=== PATIENT | female | born 1990 | race African-American/Black ===

== ENCOUNTER 2017-09-24 02:02 | Inpatient (IN) ==
[2017-09-24] MEDS: LACTATED RINGERS 1,000 ML IV SCH ×3 (02:47→08:59)
[2017-09-24] MEDS ORDERED: ONDANSETRON 4 MG/2 ML VIAL IV PRN (02:57)
[2017-09-24] MEDS ORDERED: BUTORPHANOL 2 MG/ML VIAL IV PRN (02:57)
[2017-09-24] MEDS: MEPERIDINE 50 MG/1 ML VIAL IV PRN ×2 (05:25→07:55)
[2017-09-24] MEDS ORDERED: OXYTOCIN/LR 20 UNIT/1,000 ML BAG IV SCH (05:30)
[2017-09-24 05:31] LABS: Basophils % 0.2 % (0.0-0.8); Eosinophils % 0.7 % (0.00-10.9); Hematocrit 28.3 VOL% (35.7-47.0); Hemoglobin 8.8 GM/DL (12.0-16.0); Immature Granulocytes % 0.3 %; Immature Granulocytes Absolute 0.02 #; Lymphocytes # 1.7 10*3/uL (1.4-4.0); Lymphocytes % 29.6 % (21.3-54.2); Mean Corpuscular HGB Conc 31.1 GM/DL (32-36); Mean Corpuscular Hemoglobin 22 PG (27-34); Mean Corpuscular Volume 72.2 FL (87-102); Mean Platelet Volume 9.3 FL (9.6-12.0); Monocytes # 0.5 10*3/uL (0.11-0.8); Monocytes % 7.7 % (1.7-12.7); NRBC # 0.03 10*3/uL; Neutrophils # 3.6 10*3/uL (1.4-7.4); Neutrophils % 61.5 % (38.7-73.9); Platelet Count 196 T/CUMM (130-400); Red Blood Count 3.92 MC/CUMM (3.8-5.5); Red Cell Distribution Width 17.2 % (9.3-17.3); White Blood Count 5.8 T/CUMM (4-12)
[2017-09-24] MEDS ORDERED: PROMETHAZINE 25 MG/1 ML VIAL IM ONE (07:36)
[2017-09-24] MEDS ORDERED: CITRIC ACID/SODIUM CITRATE 30 ML UDCUP PO ONE (07:36)
[2017-09-24] MEDS ORDERED: FAMOTIDINE 20 MG/2 ML VIAL IV ONE (07:36)
[2017-09-24] MEDS ORDERED: ePHEDrine 50 MG/ML AMP IV PRN (07:36)
[2017-09-24] MEDS ORDERED: hydrOXYzine HCL 25 MG/1 ML VIAL IM PRN (07:36)
[2017-09-24] MEDS ORDERED: diphenhydrAMINE 50 MG/1 ML VIAL IV PRN ×2 (07:36)
[2017-09-24] MEDS ORDERED: fentaNYL 2 MCG/ROPIV 0.2% EPID 150 ML EPIDURAL SCH (08:00)
[2017-09-24 11:41] LABS: Apearance,Urine Slightly Hazy (Clear); Bacteria,Urine Occasional /HPF (Few); Bilirubin,Urine Negative (Negative); Blood, Urine Small mg/dL (Negative); Glucose,Urine (UA) Negative (Negative); Ketones,Urine Negative (Negative); Mucus,Urine Many /LPF (Occasional); Nitrite,Urine Negative (Negative); Protein,Urine Negative; RBC,Urine 39 /HPF (0-4); Squamous Epithelial Cell,Urine Occasional /HPF (0-10); Urine Color Yellow (Yellow); Urine Specific Gravity 1.014 (1.001-1.035); WBC,Urine 2 /HPF (0-6)
[2017-09-24] MEDS ORDERED: LIDOCAINE 1% 50 ML VIAL ONE (12:30)
[2017-09-24 13:22] LABS: Cord Arterial Blood HCO3 18.6 MMOL/L
[2017-09-24 13:25] LABS: Cord Venous Blood HCO3 21.2 MMOL/L; Cord Venous Blood PO2 20.7
[2017-09-24] MEDS ORDERED: OXYTOCIN/LR 20 UNIT/1,000 ML BAG IV ONE (16:04)
[2017-09-24] MEDS ORDERED: IBUPROFEN 800 MG TABLET PO PRN (16:12)
[2017-09-24] MEDS ORDERED: BENZOCAINE 20%/MENTHOL 0.5% SPRAY 56 GM CAN TOP PRN (17:58)
[2017-09-24] MEDS ORDERED: oxyCODONE/ACETAMINOPHEN 5-325 MG TABLET PO PRN (17:58)
[2017-09-24] MEDS ORDERED: MEASLES/MUMPS/RUBELLA VACCINE 0.5 ML VIAL SUBCUT ONE (17:58)
[2017-09-24] MEDS ORDERED: BISACODYL 10 MG SUPP RECTAL PRN (17:58)
[2017-09-24] MEDS ORDERED: LANOLIN 50% CREAM 0.3 OZ TUBE TOP PRN (17:58)
[2017-09-24] MEDS ORDERED: HYDROCORTISONE 2.5% RECTAL CREAM 30 GM TUBE TOP PRN (17:58)
[2017-09-24] MEDS ORDERED: DIPH/TET/ACEL PERT BOOSTER VACCINE 0.5 ML VIAL IM ONE (17:58)
[2017-09-24] MEDS ORDERED: ACETAMINOPHEN 325 MG TABLET PO PRN (17:58)
[2017-09-24] MEDS ORDERED: WITCH HAZEL PADS 100/JAR TOP PRN (17:58)
[2017-09-24] MEDS ORDERED: RHO(D) IMMUNE GLOBULIN 300 MCG SYRINGE IM ONE (17:58)
[2017-09-24] MEDS ORDERED: ACETAMINOPHEN/CODEINE 300-30 MG TABLET PO PRN (17:58)
[2017-09-24] MEDS: DOCUSATE SODIUM 100 MG CAPSULE PO SCH (20:36)
[2017-09-24] MEDS ORDERED: FERROUS SULFATE 325 MG TABLET PO SCH (21:00)
[2017-09-24] MEDS ORDERED: DOCUSATE SODIUM 100 MG CAPSULE PO SCH (21:00)
[2017-09-25] MEDS: oxyCODONE/ACETAMINOPHEN 5-325 MG TABLET PO PRN ×3 (00:58→22:00)
[2017-09-25 06:23] LABS: Basophils % 0.4 % (0.0-0.8); Eosinophils # 0.1 10*3/uL (0.0-0.87); Eosinophils % 1.2 % (0.00-10.9); Hematocrit 31.1 VOL% (35.7-47.0); Immature Granulocytes % 0.3 %; Immature Granulocytes Absolute 0.02 #; Lymphocytes # 2.2 10*3/uL (1.4-4.0); Lymphocytes % 33.3 % (21.3-54.2); Mean Corpuscular HGB Conc 28.9 GM/DL (32-36); Mean Corpuscular Hemoglobin 22 PG (27-34); Mean Corpuscular Volume 76.2 FL (87-102); Monocytes # 0.5 10*3/uL (0.11-0.8); Monocytes % 6.7 % (1.7-12.7); NRBC # 0.02 10*3/uL; Neutrophils # 3.9 10*3/uL (1.4-7.4); Neutrophils % 58.1 % (38.7-73.9); Platelet Count 200 T/CUMM (130-400); Red Blood Count 4.08 MC/CUMM (3.8-5.5); Red Cell Distribution Width 17.1 % (9.3-17.3); White Blood Count 6.7 T/CUMM (4-12)
[2017-09-25 06:29] LABS: Hemoglobin 9.1 GM/DL (12.0-16.0)
[2017-09-25 06:45] LABS: Giant Platelets Few; Hypochromasia 1+; Microcytosis Slight; Platelet Estimate Adequate
[2017-09-25] MEDS ORDERED: MAGNESIUM HYDROXIDE SUSP 30 ML UDCUP PO PRN (07:28)
[2017-09-25] MEDS ORDERED: SIMETHICONE CHEW 80 MG TABLET PO PRN (07:29)
[2017-09-25] MEDS: DOCUSATE SODIUM 100 MG CAPSULE PO SCH ×2 (09:40→21:17)
[2017-09-25] MEDS ORDERED: IBUPROFEN 800 MG TABLET PO PRN (14:12)
[2017-09-25] MEDS ORDERED: BENZOCAINE/MENTHOL LOZENGE 18/BOX PO PRN (21:05)
[2017-09-25] MEDS: FERROUS SULFATE 325 MG TABLET PO SCH (21:17)
[2017-09-26 08:28] VITALS: BP 123/71
[2017-09-26] MEDS: DOCUSATE SODIUM 100 MG CAPSULE PO SCH (08:47)
[2017-09-26] MEDS: FERROUS SULFATE 325 MG TABLET PO SCH (08:47)
== END 2017-09-26 12:45 | disposition home or self-care (01) | DRG 560 ==
LOC: N.LDOUT 02:02 → N.LD 02:03 → N.OB 15:44
PROVIDERS: ADMIT Obstetrics & Gynecology; ATTEND Obstetrics & Gynecology

== ENCOUNTER 2020-01-24 11:34 | Inpatient (IN) ==
[2020-01-24] MEDS ORDERED: BUTORPHANOL 2 MG/ML VIAL IV ONE (12:24)
[2020-01-24] MEDS ORDERED: OXYTOCIN/LR 20 UNIT/1,000 ML BAG IV ONE ×2 (12:27→16:50)
[2020-01-24] MEDS ORDERED: BUTORPHANOL 2 MG/ML VIAL ONE (12:27)
[2020-01-24] MEDS ORDERED: ONDANSETRON 4 MG/2 ML VIAL IV PRN (12:28)
[2020-01-24] MEDS ORDERED: LACTATED RINGERS 500 ML IV PRN (12:28)
[2020-01-24] MEDS ORDERED: AMPICILLIN INJ 2,000 MG in SODIUM CHLORIDE 0.9% 100 ML IV ONE (12:29)
[2020-01-24] MEDS ORDERED: LACTATED RINGERS 1,000 ML IV SCH (12:30)
[2020-01-24] MEDS ORDERED: SODIUM CHLORIDE 0.9% 0 ML IV ONE (12:32)
[2020-01-24] MEDS ORDERED: AMPICILLIN 2,000 MG VIAL ONE (12:32)
[2020-01-24] MEDS ORDERED: TRANEXAMIC ACID 1,000 MG/10 ML VIAL ONE (13:03)
[2020-01-24] MEDS ORDERED: miSOPROStoL 200 MCG TABLET ONE (13:03)
[2020-01-24] MEDS ORDERED: CARBOPROST TROMETHAMINE 250 MCG/ML AMP IM ONE (13:04)
[2020-01-24] MEDS ORDERED: METHYLERGONOVINE 0.2 MG/1 ML AMP ONE (13:04)
[2020-01-24] MEDS ORDERED: LIDOCAINE 1% 50 ML VIAL ONE (13:05)
[2020-01-24] MEDS ORDERED: SODIUM CHLORIDE 0.9% 100 ML IV ONE (13:05)
[2020-01-24 13:08] LABS: Basophils % 0.2 % (0.0-0.8); Eosinophils % 0.2 % (0.00-10.9); Hematocrit 29.4 VOL% (35.7-47.0); Hemoglobin 8.4 GM/DL (12.0-16.0); Immature Granulocytes % 0.4 %; Immature Granulocytes Absolute 0.02 #; Lymphocytes # 1.4 10*3/uL (1.4-4.0); Lymphocytes % 25.2 % (21.3-54.2); Mean Corpuscular HGB Conc 28.6 GM/DL (32-36); Mean Corpuscular Volume 69.2 FL (87-102); Mean Platelet Volume 10.1 FL (9.6-12.0); Monocytes % 5.1 % (1.7-12.7); Neutrophils % 68.9 % (38.7-73.9); Platelet Count 223 T/CUMM (130-400); Red Blood Count 4.25 MC/CUMM (3.8-5.5); Red Cell Distribution Width 18.5 % (9.3-17.3); White Blood Count 5.7 T/CUMM (4-12)
[2020-01-24 13:15] LABS: Albumin 2.5 G/DL (3.4-5.0); Bilirubin,Total 0.6 MG/DL (0.2-1.0); Calcium 8.7 MG/DL (8.5-10.1); Osmolality,Calculated 265.1 MOS/KG (273-304); Total Protein 7.8 G/DL (6.4-8.3)
[2020-01-24 14:07] LABS: Cord Venous Blood HCO3 21.5 MMOL/L; Cord Venous Blood PCO2 37.3 MMHG; Cord Venous Blood PO2 35.1 MMHG
[2020-01-24] MEDS ORDERED: OXYTOCIN/LR 20 UNIT/1,000 ML BAG IV SCH (14:30)
[2020-01-24] MEDS ORDERED: IBUPROFEN 800 MG TABLET PO ONE (14:50)
[2020-01-24] MEDS ORDERED: LANOLIN 50% CREAM 0.3 OZ TUBE TOP PRN (16:50)
[2020-01-24] MEDS ORDERED: oxyCODONE/ACETAMINOPHEN 5-325 MG TABLET PO PRN (16:50)
[2020-01-24] MEDS ORDERED: MEASLES/MUMPS/RUBELLA VACCINE 0.5 ML VIAL SUBCUT ONE (16:50)
[2020-01-24] MEDS ORDERED: BENZOCAINE 20%/MENTHOL 0.5% SPRAY 56 GM CAN TOP PRN (16:50)
[2020-01-24] MEDS ORDERED: HYDROCORTISONE 2.5% RECTAL CREAM 30 GM TUBE TOP PRN (16:50)
[2020-01-24] MEDS ORDERED: DIPH/TET/ACEL PERT BOOSTER VACCINE 0.5 ML VIAL IM ONE (16:50)
[2020-01-24] MEDS ORDERED: WITCH HAZEL PADS 100/JAR TOP PRN (16:50)
[2020-01-24] MEDS ORDERED: ACETAMINOPHEN 325 MG TABLET PO PRN (16:50)
[2020-01-24] MEDS ORDERED: BISACODYL 10 MG SUPP RECTAL PRN (16:50)
[2020-01-24] MEDS ORDERED: RHO(D) IMMUNE GLOBULIN 300 MCG SYRINGE IM ONE (16:50)
[2020-01-24] MEDS: IBUPROFEN 800 MG TABLET PO PRN (17:01)
[2020-01-24 17:19] LABS: Microcytosis 2+; Polychromasia 1+
[2020-01-24 17:20] LABS: Hypochromasia 1+; Platelet Estimate Normal
[2020-01-24] MEDS: oxyCODONE/ACETAMINOPHEN 5-325 MG TABLET PO PRN (17:42)
[2020-01-24] MEDS: FERROUS SULFATE 325 MG TABLET PO SCH (22:33)
[2020-01-24] MEDS: DOCUSATE SODIUM 100 MG CAPSULE PO SCH (22:33)
[2020-01-25] MEDS: oxyCODONE/ACETAMINOPHEN 5-325 MG TABLET PO PRN ×4 (02:42→23:30)
[2020-01-25 05:46] LABS: Basophils % 0.3 % (0.0-0.8); Eosinophils % 0.6 % (0.00-10.9); Hematocrit 30.3 VOL% (35.7-47.0); Hemoglobin 8.8 GM/DL (12.0-16.0); Immature Granulocytes % 0.3 %; Immature Granulocytes Absolute 0.02 #; Lymphocytes # 1.6 10*3/uL (1.4-4.0); Mean Corpuscular Volume 68.7 FL (87-102); Mean Platelet Volume 9.3 FL (9.6-12.0); Monocytes % 6.9 % (1.7-12.7); NRBC # 0.02 10*3/uL; Neutrophils % 65.9 % (38.7-73.9); Platelet Count 204 T/CUMM (130-400); Red Blood Count 4.41 MC/CUMM (3.8-5.5); Red Cell Distribution Width 18.4 % (9.3-17.3); White Blood Count 6.3 T/CUMM (4-12)
[2020-01-25] MEDS: DOCUSATE SODIUM 100 MG CAPSULE PO SCH ×2 (07:50→21:09)
[2020-01-25] MEDS: IBUPROFEN 800 MG TABLET PO PRN ×2 (07:50→18:05)
[2020-01-25] MEDS: FERROUS SULFATE 325 MG TABLET PO SCH ×2 (07:50→21:09)
[2020-01-26 09:15] VITALS: BP 124/74
[2020-01-26] MEDS: DOCUSATE SODIUM 100 MG CAPSULE PO SCH (10:08)
[2020-01-26] MEDS: FERROUS SULFATE 325 MG TABLET PO SCH (10:08)
== END 2020-01-26 13:50 | disposition home or self-care (01) | DRG 560 ==
LOC: N.LDOUT 11:34 → N.LD 11:46 → N.OB 16:52
PROVIDERS: ADMIT Obstetrics & Gynecology; ATTEND Obstetrics & Gynecology

== ENCOUNTER 2020-12-17 11:11 | Inpatient (IN) ==
[2020-12-17] MEDS ORDERED: TRANEXAMIC ACID 1,000 MG/10 ML VIAL ONE (11:30)
[2020-12-17] MEDS ORDERED: OXYTOCIN/LR 20 UNIT/1,000 ML BAG IV ONE ×2 (11:30→13:16)
[2020-12-17] MEDS ORDERED: miSOPROStoL 200 MCG TABLET ONE (11:30)
[2020-12-17] MEDS ORDERED: CARBOPROST TROMETHAMINE 250 MCG/ML AMP IM ONE (11:31)
[2020-12-17] MEDS ORDERED: METHYLERGONOVINE 0.2 MG/1 ML AMP ONE (11:31)
[2020-12-17] MEDS ORDERED: SODIUM CHLORIDE 0.9% 0 ML IV ONE (11:35)
[2020-12-17] MEDS ORDERED: BUTORPHANOL 2 MG/ML VIAL IV PRN (11:42)
[2020-12-17] MEDS ORDERED: ONDANSETRON 4 MG/2 ML VIAL IV PRN ×2 (11:42→11:43)
[2020-12-17] MEDS ORDERED: MEPERIDINE 50 MG/1 ML VIAL IV PRN (11:42)
[2020-12-17] MEDS ORDERED: LACTATED RINGERS 250 ML IV ONE (11:43)
[2020-12-17] MEDS ORDERED: AMPICILLIN 2,000 MG VIAL ONE (11:47)
[2020-12-17] MEDS ORDERED: AMPICILLIN INJ 2,000 MG in SODIUM CHLORIDE 0.9% 100 ML IV ONE (11:47)
[2020-12-17] MEDS ORDERED: LIDOCAINE 1% 50 ML VIAL ONE (11:56)
[2020-12-17 12:00] LABS: Basophils % 0.1 % (0.0-0.8); Eosinophils % 0.4 % (0.00-10.9); Hematocrit 28.8 VOL% (35.7-47.0); Hemoglobin 8.3 GM/DL (12.0-16.0); Immature Granulocytes % 0.4 %; Immature Granulocytes Absolute 0.03 #; Lymphocytes # 1.6 10*3/uL (1.4-4.0); Lymphocytes % 21.5 % (21.3-54.2); Mean Corpuscular HGB Conc 28.8 GM/DL (32-36); Mean Corpuscular Volume 72.5 FL (87-102); Mean Platelet Volume 8.8 FL (9.6-12.0); Monocytes % 4.8 % (1.7-12.7); Neutrophils % 72.8 % (38.7-73.9); Platelet Count 154 T/CUMM (130-400); Red Blood Count 3.97 MC/CUMM (3.8-5.5); Red Cell Distribution Width 18.4 % (9.3-17.3); White Blood Count 7.5 T/CUMM (4-12)
[2020-12-17 12:13] LABS: Cord Arterial Blood HCO3 18.8 MMOL/L
[2020-12-17 12:14] LABS: Cord Venous Blood HCO3 21.7 MMOL/L; Cord Venous Blood PCO2 43.1 MMHG; Cord Venous Blood PO2 28.5 MMHG
[2020-12-17 12:34] LABS: Alanine Aminotransferase < 9 U/L (13-56); Albumin 2.6 G/DL (3.4-5.0); Alkaline Phosphatase 127 U/L (45-117); Aspartate Amino Transferase 16 U/L (0-37); Blood Urea Nitrogen 3 MG/DL (7-18); Calcium 8.7 MG/DL (8.5-10.1); Carbon Dioxide 22 MMOL/L (21-32); Estimated Glom Filtration Rate 185 ML/MIN; Glucose 100 MG/DL (74-106); Osmolality,Calculated 273.5 MOS/KG (273-304); Potassium 2.7 MMOL/L (3.5-5.1); Sodium 139 MMOL/L (136-145); Total Protein 7.3 G/DL (6.4-8.2)
[2020-12-17] MEDS ORDERED: OXYTOCIN/LR 20 UNIT/1,000 ML BAG IV STA (13:19)
[2020-12-17] MEDS: LACTATED RINGERS 1,000 ML IV SCH ×2 (13:20→13:21)
[2020-12-17] MEDS: IBUPROFEN 800 MG TABLET PO PRN ×2 (14:08→23:18)
[2020-12-17] MEDS: POTASSIUM CHLORIDE 20 MEQ TABLET PO PRN ×4 (15:32→23:17)
[2020-12-18 07:46] LABS: Basophils % 0.1 % (0.0-0.8); Eosinophils # 0.1 10*3/uL (0.0-0.87); Eosinophils % 1.1 % (0.00-10.9); Hematocrit 27.8 VOL% (35.7-47.0); Hemoglobin 7.8 GM/DL (12.0-16.0); Immature Granulocytes % 0.4 %; Immature Granulocytes Absolute 0.03 #; Lymphocytes # 1.9 10*3/uL (1.4-4.0); Lymphocytes % 26.5 % (21.3-54.2); Mean Corpuscular HGB Conc 28.1 GM/DL (32-36); Mean Corpuscular Volume 73.5 FL (87-102); Mean Platelet Volume 9.6 FL (9.6-12.0); Monocytes % 7.5 % (1.7-12.7); Neutrophils % 64.4 % (38.7-73.9); Platelet Count 154 T/CUMM (130-400); Red Blood Count 3.78 MC/CUMM (3.8-5.5); Red Cell Distribution Width 18.4 % (9.3-17.3); White Blood Count 7.2 T/CUMM (4-12)
[2020-12-18] MEDS: IRON (CARBONYL)/VIT C/B12/FA TABLET PO SCH (08:49)
[2020-12-18] MEDS: DOCUSATE SODIUM 100 MG CAPSULE PO SCH ×2 (08:50→20:01)
[2020-12-18] MEDS: IBUPROFEN 800 MG TABLET PO PRN ×2 (08:52→18:35)
[2020-12-18 09:27] LABS: Hypochromasia 2+; Microcytosis 3+; Ovalocytes Few; Platelet Estimate Adequate; Tear Drop Cells Slight
[2020-12-18] MEDS: LACTATED RINGERS 1,000 ML IV SCH ×4 (14:05→14:07)
[2020-12-19 08:05] VITALS: BP 124/72
[2020-12-19] MEDS: IRON (CARBONYL)/VIT C/B12/FA TABLET PO SCH (08:49)
[2020-12-19] MEDS: DOCUSATE SODIUM 100 MG CAPSULE PO SCH (08:50)
== END 2020-12-19 12:13 | disposition home or self-care (01) | DRG 560 ==
LOC: N.LDOUT 11:11 → N.LD 11:13 → N.OB 14:49
PROVIDERS: ADMIT Obstetrics & Gynecology; ATTEND Obstetrics & Gynecology